=== PATIENT | female | born 1985 | race Caucasian/White ===

== ENCOUNTER 2016-06-01 15:14 | Emergency (ER) | payer OTHER ==
[~2016-06-01] VITALS: Ht 157.5 cm; Wt 73.5 kg
[~2016-06-01 15:14] MED LIST: ACET500C5 PO; PREN-46 PO; PREN1TAB49
[2016-06-01 15:20] VITALS: Ht 157.5 cm; Wt 73.5 kg
--- NOTE | 2016-06-01 16:23 | ERD ---
ER Documentation Chief Complaint Date/Time DATE: 06/01/16 TIME: 16:21 Chief Complaint 8 WEEKS WITH VOMITING HPI 30-year-old female who is approximately weeks , A0 comes in with hyperemesis gravidarum from her [employer] office today. Patient states that she usually has nonbloody nonbilious emesis after eating food. This is been ongoing for approximately 2 weeks now. She denies any fevers, diarrhea, hematemesis, abdominal pain. She denies pelvic pain or vaginal bleeding. ROS All systems reviewed and are negative except as per history of present illness. Medications Home Meds Active Scripts Metoclopramide* (Reglan*) 10 Mg Tablet, 10 MG PO Q6 Y for NAUSEA AND/OR VOMITING , #10 TAB Prov:LUZ MARIA GONZALEZ PA-C 06/01/16 Cephalexin* (Keflex*) 500 Mg Capsule, 500 MG PO QID for 7 Days, CAP Prov:LUZ MARIA GONZALEZ PA-C 06/01/16 Acetaminophen* (Tylophen*) 500 Mg Capsule, 1 CAP PO Q6H Y for PAIN AND OR ELEVATED TEMP, #20 CAP Prov:ETTA HOU MD 10/17/15 Reported Medications Vit #108/Iron/Fa ( ONE TABLET) 1 Each Tablet, 1 EACH PO DAILY, #1 03/18/13 Vits W-Ca,Fe,Fa(<1MG) () 1 Tab Tablet 10/15/09 Allergies Allergies: Coded Allergies: Ibuprofen (Verified Allergy, Mild, RASH, 10/22/09) PMhx/Soc History of Surgery: No Anesthesia Reaction: No Hx Neurological Disorder: No Hx Respiratory Disorders: No Hx Cardiac Disorders: No Hx Psychiatric Problems: No Hx Miscellaneous Medical Probl: No Hx Alcohol Use: No Hx Substance Use: No Hx Tobacco Use: No Physical Exam Vitals Vital Signs Date Time Temp Pulse Resp B/P Pulse Ox O2 Delivery O2 Flow Rate FiO2 06/01/16 15:20 97.1 79 20 135/88 99 Physical Exam General: Well-developed, well-nourished. The patient appears in no acute distress. HEENT: Head is normocephalic, atraumatic. No scleral icterus. Moist mucous membranes Neck: Supple. Nontender. Lungs: Clear to auscultation. Normal air movement. Heart: Regular rate and rhythm. S1 and S2 are normal. No murmurs, gallops, or rubs. Abdomen: Soft, nontender, nondistended. Bowel sounds are normoactive. Extremities: No clubbing or cyanosis. Normal pulses. Moving extremities x 4. No weakness. Neurologic: Alert and oriented 3. No focal deficits. Skin: Normal turgor. No rash or lesions. Result Diagram: 06/01/16 1655 06/01/16 1655 Results 24 hrs Laboratory Tests Test 06/01/16 16:45 06/01/16 16:55 Urine Color LT. YELLOW Urine Clarity CLEAR Urine pH 7.0 Urine Specific [place] 1.010 Urine Ketones NEGATIVE Urine Nitrite NEGATIVE Urine Bilirubin NEGATIVE Urine Urobilinogen 0.2 E.U./dL Urine Leukocyte Esterase 2+ Urine Microscopic RBC 0-2/HPF Urine Microscopic WBC 10-25/HPF Urine Squamous Epithelial Cells MODERATE Urine Bacteria MODERATE Urine Hemoglobin NEGATIVE Urine Glucose NEGATIVE% Urine Total Protein NEGATIVE White Blood Count 10.310^3/ul Red Blood Count 4.5210^6/ul Hemoglobin 12.7g/dl Hematocrit 37.4% Mean Corpuscular Volume 82.7fl Mean Corpuscular Hemoglobin 28.1pg Mean Corpuscular Hemoglobin Concent 34.0g/dl Red Cell Distribution Width 13.6% Platelet Count 89975^3/UL Mean Platelet Volume 10.6fl Neutrophils % 50.2% Lymphocytes % 39.1% Monocytes % 7.4% Eosinophils % 2.7% Basophils % 0.4% Nucleated Red Blood Cells % 0.0/100WBC Neutrophils # 5.210^3/ul Lymphocytes # 4.010^3/ul Monocytes # 0.810^3/ul Eosinophils # 0.310^3/ul Basophils # 0.010^3/ul Nucleated Red Blood Cells # 0.010^3/ul Sodium Level 140mmol/L Potassium Level 3.5mmol/L Chloride Level 102mmol/L Carbon Dioxide Level 23mmol/L Anion Gap 19 Blood Urea Nitrogen 7mg/dl Creatinine 0.50mg/dl Glucose Level 76mg/dl Calcium Level 9.3mg/dl Total Bilirubin 0.3mg/dl Direct Bilirubin 0.00mg/dl Indirect Bilirubin 0.3mg/dl Aspartate Amino Transf (AST/SGOT) 16IU/L Alanine Aminotransferase (ALT/SGPT) 22IU/L Alkaline Phosphatase 62IU/L Total Protein 7.6g/dl Albumin 4.3g/dl Globulin 3.30g/dl Albumin/Globulin Ratio 1.30 Lipase 68U/L Beta HCG, Quantitative 446918.0mIU/ml Current Medications Medications (Trade) Dose Ordered Sig/Elvie Route PRN Reason Start Time Stop Time Status Last Admin Dose Admin Sodium Chloride (NS) 1,000 ml @ 1,000 mls/hr Q1H ONCE IV 06/01/16 16:30 06/01/16 17:29 DC 06/01/16 17:03 Metoclopramide HCl (Reglan) 10 mg ONCE ONCE IV 06/01/16 16:30 06/01/16 16:31 DC 06/01/16 17:03 Diphenhydramine HCl 25 mg 25 mg ONCE ONCE IV 06/01/16 16:30 06/01/16 16:31 DC 06/01/16 17:03 Ceftriaxone Sodium (Rocephin) 50 ml @ 100 mls/hr ONCE ONCE IVPB 06/01/16 17:30 06/01/16 17:59 DC Procedures/MDM ED course: Patient had blood work, urine obtained, she was given a fluid bolus of normal saline 1 L, Benadryl 25 mg, Reglan 10 mg IV was administered. She was given Rocephin 1 g IV in the emergency department. She was reassessed and was found to be feeling much better. She did not experience any further episodes of emesis. MDM: 30-year-old female first trimester , comes in with hyperemesis gravidarum, urinary tract infection. She is hemodynamically stable, and there were no electrolyte abnormalities and her chemistry. And on ultrasound shows a single live intrauterine at 9 weeks. She was given fluids in the emergency department, as well as Reglan which controlled her symptoms. At this time given that she is not having any active vomiting, does not show any signs of dehydration or pyelonephritis, patient is appropriate to be discharged home for outpatient management. She is to follow-up with her OB in the next few days. Departure Diagnosis: Primary Impression: First trimester Additional Impressions: Hyperemesis gravidarum UTI (urinary tract infection) Condition: LUZ MARIA Colindres PA-C Jun 01, 2016 16:23
[2016-06-01] MEDS ORDERED: METOCLOPRAMIDE 10 MG INJ IV ONE (16:30)
[2016-06-01] MEDS ORDERED: DIPHENHYDRAMINE 50 MG INJ IV ONE (16:30)
[2016-06-01] MEDS ORDERED: SOD CHLORIDE 0.9% 1,000 ML IV ONE (16:30)
--- NOTE | 2016-06-01 17:01 | RADRPT ---
PROCEDURE: US Pelvis. CLINICAL INDICATION: Hyper emesis. TECHNIQUE: Multiple sonographic images of the pelvis were obtained utilizing a transabdominal and endovaginal technique. The images were reviewed on a PACS workstation. COMPARISON: FINDINGS: Uterus is remarkable for an single living intrauterine gestation. pole is seen with active ca rdiac activity at 171 beats per minute. The mean gestational sac size is 3.47 cm consistent with a w [place] 5-day gestation. The mean crown-rump length is 3.02 cm consist with a 1-jogq-5-day gestation.. There are no abnormal fluid collections. There are no adnexal masses. Both ovaries appear normal with Doppler flow visualized. The right ovary measures 2.2 x 1.8 x 1.7 cm. The left ovary measures 3.5 x 1.7 x 2.9 cm. IMPRESSION: 1. Single living intrauterine gestation with a mean gestational age by ultrasound of 9 weeks 2 days plus or minus 5 days. Estimated date of delivery is 01/02/2017. RPTAT: [facility]ACC Physician Daniel Date Time Electronically viewed and signed by Physician Daniel on 06/01/2016 17:01 /
[2016-06-01 17:06] LABS: ADD UMIC YES; URINE BILIRUBIN (Dip) NEGATIVE (NEGATIVE); URINE BLOOD (Dip) NEGATIVE (NEGATIVE); URINE COLOR LT. YELLOW (YELLOW); URINE GLUCOSE (Dip) NEGATIVE (NEGATIVE); URINE KETONES (Dip) NEGATIVE (NEGATIVE); URINE LEUKOCYTE ESTERASE (Dip) 2+ (NEGATIVE); URINE NITRITE (Dip) NEGATIVE (NEGATIVE); URINE TOTAL PROTEIN (Dip) NEGATIVE (NEGATIVE); URINE UROBILINOGEN (Dip) 0.2 E.U./dL (0.1-1.0)
[2016-06-01 17:07] LABS: ADD SCAN DIFF NO
[2016-06-01 17:09] LABS: BASOPHILS % 0.4 % (0.0-2.0); EOSINOPHILS # 0.3 10^3/ul (0.0-0.5); EOSINOPHILS % 2.7 % (0.0-7.0); HEMATOCRIT 37.4 % (37.0-47.0); HEMOGLOBIN 12.7 g/dl (12.0-16.0); LYMPHOCYTES % 39.1 % (15.0-51.0); MEAN CORPUSCULAR HEMOGLOBIN 28.1 pg (29.0-33.0); MEAN CORPUSCULAR VOLUME 82.7 fl (82.0-101.0); MEAN PLATELET VOLUME 10.6 fl (7.4-10.4); MONOCYTE # 0.8 10^3/ul (0.3-0.9); MONOCYTES % 7.4 % (0.0-11.0); NEUTROPHIL # 5.2 10^3/ul (1.6-7.5); NEUTROPHILS % 50.2 % (39.0-77.0); PLATELET COUNT 282 10^3/UL (140-415); RED BLOOD COUNT 4.52 10^6/ul (4.20-5.40); RED CELL DISTRIBUTION WIDTH 13.6 % (11.5-14.5); WHITE BLOOD COUNT 10.3 10^3/ul (4.8-10.8)
[2016-06-01 17:14] LABS: BACTERIA,URINE MODERATE; SQUAMOUS EPITHELIAL CELL,UR MODERATE; URINE RBCS 0-2 /HPF (0)
[2016-06-01 17:20] LABS: ALBUMIN 4.3 g/dl (3.3-4.9)
[2016-06-01 17:21] LABS: POTASSIUM 3.5 mmol/L (3.5-5.1)
[2016-06-01 17:23] LABS: ALBUMIN/GLOBULIN RATIO 1.3; BILIRUBIN,INDIRECT 0.3 mg/dl (0-1.1); BILIRUBIN,TOTAL 0.3 mg/dl (0.2-1.3); CREATININE 0.5 mg/dl (0.44-1.00); TOTAL PROTEIN 7.6 g/dl (6.1-8.1)
[2016-06-01 17:24] LABS: CALCIUM 9.3 mg/dl (8.4-10.2)
[2016-06-01] MEDS ORDERED: CEFTRIAXONE 1 GM/50 ML (PMX) 50 ML IVPB ONE (17:30)
[2016-06-01] MEDS ORDERED: METO10TA92 PO (18:09)
[2016-06-01] MEDS ORDERED: CEPH-443 PO (18:09)
== END 2016-06-01 19:11 | disposition home or self-care (01) ==
LOC: FTE 15:14
DX: O21.0 Mild hyperemesis gravidarum (principal); O23.41 Unspecified infection of urinary tract in pregnancy, first trimester; Z3A.09 9 weeks gestation of pregnancy
CPT/HCPCS: 36415; 76801; 80053; 81001; 81003; 83690; 84702; 85025; 96374; 96375; J0696; J1200; J2765; J7030; Z7502

== ENCOUNTER 2016-07-28 13:01 | Emergency (ER) | payer OTHER ==
[~2016-07-28] VITALS: Ht 157.5 cm; Wt 75.0 kg
[~2016-07-28 13:01] MED LIST changes: +CEPH-443 PO; +METO10TA92 PO
[2016-07-28 13:08] VITALS: Ht 157.5 cm; Wt 75.0 kg
[2016-07-28] MEDS ORDERED: HYDROCODONE/APAP (5/325) TAB PO ONE (14:00)
--- NOTE | 2016-07-28 14:12 | ERD ---
ER Documentation Chief Complaint Date/Time DATE: 07/28/16 TIME: 14:09 Chief Complaint lower back pain s/p fall in shower today , 18 weeks preg , denies abd pain HPI 30 yo female who is 18 weeks who is A0, comes in with low back pain s/p slip and fall in the bathroom. Patient reports moderate to severe pain , worse with movement. patient states that this is happened and she has diffuse lower back pain. She denies saddle anesthesia loss of bowel bladder function. She denies vaginal bleeding or vaginal leakage. ROS All systems reviewed and are negative except as per history of present illness. Medications Home Meds Active Scripts Cephalexin* (Keflex*) 500 Mg Capsule, 500 MG PO TID for 7 Days, CAP Prov:LUZ MARIA GONZALEZ PA-C 07/28/16 Metoclopramide* (Reglan*) 10 Mg Tablet, 10 MG PO Q6 Y for NAUSEA AND/OR VOMITING , #10 TAB Prov:LUZ MARIA GONZALEZ PA-C 06/01/16 Cephalexin* (Keflex*) 500 Mg Capsule, 500 MG PO QID for 7 Days, CAP Prov:LUZ MARIA GONZALEZ PA-C 06/01/16 Acetaminophen* (Tylophen*) 500 Mg Capsule, 1 CAP PO Q6H Y for PAIN AND OR ELEVATED TEMP, #20 CAP Prov:ETTA HOU MD 10/17/15 Reported Medications Vit #108/Iron/Fa ( ONE TABLET) 1 Each Tablet, 1 EACH PO DAILY, #1 03/18/13 Vits W-Ca,Fe,Fa(<1MG) () 1 Tab Tablet 10/15/09 Allergies Allergies: Coded Allergies: ibuprofen (Verified Allergy, Mild, RASH, 07/28/16) PMhx/Soc Medical and Surgical Hx: pt denies Medical Hx, pt denies Surgical Hx History of Surgery: No Anesthesia Reaction: No Hx Neurological Disorder: No Hx Respiratory Disorders: No Hx Cardiac Disorders: No Hx Psychiatric Problems: No Hx Miscellaneous Medical Probl: No Hx Alcohol Use: No Hx Substance Use: No Hx Tobacco Use: No Smoking Status: Never smoker Physical Exam Vitals Vital Signs Date Time Temp Pulse Resp B/P Pulse Ox O2 Delivery O2 Flow Rate FiO2 07/28/16 13:08 98.2 92 20 137/63 98 Physical Exam General: Well-developed, well-nourished. The patient appears in no acute distress. HEENT: Head is normocephalic, atraumatic. No scleral icterus. Lungs: Clear to auscultation. Normal air movement. Heart: Regular rate and rhythm. S1 and S2 are normal. No murmurs, gallops, or rubs. Abdomen: Soft, nontender, nondistended. Bowel sounds are normoactive. diffuse lumbar pain, no midline pain, no crepitus or bony deformities. Strength to lower extremities 5/5 bilaterally Extremities: No clubbing or cyanosis. Normal pulses. Moving extremities x 4. No weakness. Neurologic: Alert and oriented 3. No focal deficits. Skin: Normal turgor. No rash or lesions. Results 24 hrs Laboratory Tests Test 07/28/16 14:00 Urine Color LT. YELLOW Urine Clarity CLEAR Urine pH 7.0 Urine Specific [place] 1.010 Urine Ketones TRACE Urine Nitrite NEGATIVE Urine Bilirubin NEGATIVE Urine Urobilinogen 0.2 E.U./dL Urine Leukocyte Esterase TRACE Urine Microscopic RBC 0-2/HPF Urine Microscopic WBC 2-5/HPF Urine Hemoglobin NEGATIVE Urine Glucose NEGATIVE% Urine Total Protein NEGATIVE Current Medications Medications (Trade) Dose Ordered Sig/Elvie Route PRN Reason Start Time Stop Time Status Last Admin Dose Admin Acetaminophen/ Hydrocodone Bitart ([place] (5/325)) 1 tab ONCE ONCE PO 07/28/16 14:00 07/28/16 14:01 DC 07/28/16 13:55 PROCEDURE: Obstetrical ultrasound CLINICAL INDICATION: Fall, back pain TECHNIQUE: Multiple sonographic images of the pelvis were obtained. The images were reviewed on a PACS workstation. COMPARISON: Obstetrical ultrasound from 06/01/2016 FINDINGS: The cervix is not well visualized. There is a single viable intrauterine gestation. Cardiac activity is present with 171 beats per minute. There is a breech presentation. The placenta is posterior. There is no evidence for an abruption or placenta previa. There is a normal amount of amniotic fluid with a maximum vertical pocket of 4.6 cm. Measurements were made in order to determine age. The results are as follows (cm): BPD = 4.00 HC = 14.79 AC = 13.75 FL = 2.64 Estimated gestational age by ultrasound of approximately 18 weeks, 1 day. The estimated date of delivery by ultrasound is 12/28/2016. Estimated gestational age by LMP of approximately 18 weeks, 0 days. The estimated date of delivery by LMP is 12/29/2016. EFW = 245 grams (78th percentile) Bilateral ovaries are not visualized. There are no abnormal adnexal masses. IMPRESSION: Single viable intrauterine gestation of approximately 18 weeks, 1 day . The estimated date of delivery is and 12/28/2016 . Dating by ultrasound is within 1 day of dating by LMP. Posterior placenta without evidence of an abruption or placenta previa. Breech presentation. RPTAT: EE Physician Naty Date Time Electronically viewed and signed by Physician Naty on 07/28/2016 14:25 Procedures/MDM ED COURSE: patient was given [place] 5/325mg PO. Reassessment of the patient's pain was that she feels much better, I reevaluated her back pain, there is no midline tenderness. She is distally neurovascularly intact. Medical decision makin-year-old female who is 18 weeks comes emergency room status post fall with low back pain. Patient initially complained of diffuse pain, and was medicated with [place] and reassessment of her pain she is diffuse paraspinal tenderness without any midline pain. This is a young patient, it is doubtful that the patient suffered a fracture, and no signs of cauda equina. I discussed this case my supervising physician given that she is , x-rays were offered however she was made aware that there is a risk of radiation to the fetus, she declined x-rays at this time. An obstetrical ultrasound shows a single live intrauterine , placenta does not show any previa, abruption. Patient likely presents with a lumbar strain. She is distally neurovascularly intact, without any signs of cord injury. Urine does show 2-5 white blood cells, given that she is she will be given Keflex at home. The case was reviewed and discussed with Dr. Zaldivar who agrees with the plan of care including labs, treatment, and advanced imaging as appropriate. Departure Diagnosis: Primary Impression: Fall Additional Impressions: Second trimester UTI (urinary tract infection) Condition: LUZ MARIA Colindres PA-C July 28, 2016 14:12
--- NOTE | 2016-07-28 14:26 | RADRPT ---
PROCEDURE: Obstetrical ultrasound CLINICAL INDICATION: Fall, back pain TECHNIQUE: Multiple sonographic images of the pelvis were obtained. The images were reviewed on a PACS workstation. COMPARISON: Obstetrical ultrasound from 06/01/2016 FINDINGS: The cervix is not well visualized. There is a single viable intrauterine gestation. Cardiac activity is present with 171 beats per minute. There is a breech presentation. The placenta is posterior. There is no evidence for an abruption or placenta previa. There is a normal amount of amniotic fluid with a maximum vertical pocket of 4.6 cm. Measurements were made in order to determine age. The results are as follows (cm): BPD =4.00 HC =14.79 AC =13.75 FL =2.64 Estimated gestational age by ultrasound of approximately 18 weeks, 1 day. The estimated date of delivery by ultrasound is 12/28/2016. Estimated gestational age by LMP of approximately 18 weeks, 0 days. The estimated date of delivery by LMP is 12/29/2016. EFW = 245 grams (78th percentile) Bilateral ovaries are not visualized. There are no abnormal adnexal masses. IMPRESSION: Single viable intrauterine gestation of approximately 18 weeks, 1 day . The estimated date of delivery is and 12/28/2016 . Dating by ultrasound is within 1 day of dating by LMP. Posterior placenta without evidence of an abruption or placenta previa. Breech presentation. RPTAT: EE Physician Naty Date Time Electronically viewed and signed by Physician Naty on 07/28/2016 14:25 /
[2016-07-28 14:30] LABS: ADD UMIC YES; URINE BILIRUBIN (Dip) NEGATIVE (NEGATIVE); URINE BLOOD (Dip) NEGATIVE (NEGATIVE); URINE COLOR LT. YELLOW (YELLOW); URINE GLUCOSE (Dip) NEGATIVE (NEGATIVE); URINE KETONES (Dip) TRACE (NEGATIVE); URINE LEUKOCYTE ESTERASE (Dip) TRACE (NEGATIVE); URINE NITRITE (Dip) NEGATIVE (NEGATIVE); URINE TOTAL PROTEIN (Dip) NEGATIVE (NEGATIVE); URINE UROBILINOGEN (Dip) 0.2 E.U./dL (0.1-1.0)
[2016-07-28 14:44] LABS: URINE RBCS 0-2 /HPF (0)
[2016-07-28] MEDS ORDERED: CEPH-443 PO (15:05)
== END 2016-07-28 15:30 | disposition home or self-care (01) ==
LOC: FTE 13:01
DX: O9A.212 Injury, poisoning and certain other consequences of external causes complicating pregnancy, second trimester (principal); S39.92XA Unspecified injury of lower back, initial encounter; O23.42 Unspecified infection of urinary tract in pregnancy, second trimester; W18.2XXA Fall in (into) shower or empty bathtub, initial encounter; Y92.002 Bathroom of unspecified non-institutional (private) residence as the place of occurrence of the external cause; Z3A.18 18 weeks gestation of pregnancy
CPT/HCPCS: 76805; 81001; Z7502; Z7610

== ENCOUNTER 2016-10-04 01:05 | Outpatient (CLI) | payer OTHER ==
[~2016-10-04] VITALS: Ht 157.5 cm; Wt 80.9 kg
[2016-10-04 01:14] VITALS: BP 118/67; PULSE 75; RESP 17; Ht 157.5 cm; Wt 80.9 kg
[2016-10-04 02:30] LABS: BASOPHILS % 0.4 % (0.0-2.0); EOSINOPHILS # 0.6 10^3/ul (0.0-0.5); EOSINOPHILS % 5.4 % (0.0-7.0); HEMATOCRIT 31.6 % (37.0-47.0); HEMOGLOBIN 10.5 g/dl (12.0-16.0); LYMPHOCYTES % 28.5 % (15.0-51.0); MEAN CORPUSCULAR HEMOGLOBIN 28.2 pg (29.0-33.0); MEAN CORPUSCULAR HGB CONC 33.2 g/dl (32.0-37.0); MEAN CORPUSCULAR VOLUME 84.7 fl (82.0-101.0); MEAN PLATELET VOLUME 10.6 fl (7.4-10.4); MONOCYTE # 0.9 10^3/ul (0.3-0.9); MONOCYTES % 8.2 % (0.0-11.0); PLATELET COUNT 226 10^3/UL (140-415); RED BLOOD COUNT 3.73 10^6/ul (4.20-5.40); RED CELL DISTRIBUTION WIDTH 12.8 % (11.5-14.5); WHITE BLOOD COUNT 10.6 10^3/ul (4.8-10.8)
[2016-10-04 03:05] LABS: ADD UMIC YES; UR ASCORBIC ACID NEGATIVE (NEGATIVE); UR BACTERIA FEW /HPF (NONE SEEN); UR BILIRUBIN (Dip) NEGATIVE (NEGATIVE); UR BLOOD (Dip) NEGATIVE (NEGATIVE); UR CLARITY CLEAR (CLEAR); UR COLOR STRAW (YELLOW); UR GLUCOSE (Dip) NEGATIVE (NEGATIVE); UR KETONES (Dip) NEGATIVE (NEGATIVE); UR LEUKOCYTE ESTERASE (Dip) 1+ Leu/ul (NEGATIVE); UR NITRITE (Dip) NEGATIVE (NEGATIVE); UR RBC 1 /HPF (0-5); UR SQUAMOUS EPITHELIAL CELL FEW /HPF (FEW); UR TOTAL PROTEIN (Dip) NEGATIVE (NEGATIVE); UR UROBILINOGEN (Dip) NEGATIVE (NEGATIVE)
--- NOTE | 2016-10-04 03:29 | RADRPT ---
PROCEDURE: US OB limited. CLINICAL INDICATION: Contractions. Evaluate cervical length and amniotic fluid volume. TECHNIQUE: Multiple sonographic images of the pelvis were obtained. The images were reviewed on a PACS workstation. Transvaginal scanning was also performed to accurately assess cervical length. COMPARISON: 06/01/2016 FINDINGS: The cervix is closed with a length of 5.73 cm. Nabothian cyst is seen. There is a single viable intrauterine gestation. Cardiac activity is present with 157 beats per min [place]. There is a breech presentation. The placenta is posterior and grade 1. There is no evidence for an abruption or placenta previa. There is a normal amount of amniotic fluid with an LUCY = 16.6. IMPRESSION: Single live intrauterine gestation in breech presentation. Closed cervix with length of 5.73 cm. B reech presentation. Placenta posterior and grade 1. Normal amniotic fluid volume. RPTAT: [facility] Physician Remy Date Time Electronically viewed and signed by Physician Remy on 10/04/2016 03:29 LE/
--- NOTE | 2016-10-04 03:42 | PN ---
Triage Information Date/Time Reason for visit: Uterine contractions Weeks of Gestation 27+ /Para 3/2 Diabetes: none Hypertention: none Objective Vital Signs Date Time Temp Pulse Resp B/P Pulse Ox O2 Delivery O2 Flow Rate FiO2 10/04/16 01:14 98.0 75 17 118/67 Room Air Heart Rate: 140's Contractions: None Results/Medications Result Diagram: 10/04/16 0147 Results 24 hrs Laboratory Tests Test 10/04/16 01:47 White Blood Count 10.6 Red Blood Count 3.73 L Hemoglobin 10.5 L Hematocrit 31.6 L Mean Corpuscular Volume 84.7 Mean Corpuscular Hemoglobin 28.2 L Mean Corpuscular Hemoglobin Concent 33.2 Red Cell Distribution Width 12.8 Platelet Count 226 Mean Platelet Volume 10.6 H Neutrophils % 57.0 Lymphocytes % 28.5 Monocytes % 8.2 Eosinophils % 5.4 Basophils % 0.4 Nucleated Red Blood Cells % 0.0 Neutrophils # 6.0 Lymphocytes # 3.0 H Monocytes # 0.9 Eosinophils # 0.6 H Basophils # 0.0 Nucleated Red Blood Cells # 0.0 Urine Color [place]AW Urine Clarity CLEAR Urine pH 7.0 Urine Specific [place] 1.010 Urine Ketones NEGATIVE Urine Nitrite NEGATIVE Urine Bilirubin NEGATIVE Urine Urobilinogen NEGATIVE Urine Leukocyte Esterase 1+ H Urine Microscopic RBC 1 Urine Microscopic WBC 1 Urine Squamous Epithelial Cells FEW Urine Bacteria FEW A Urine Hemoglobin NEGATIVE Urine Glucose NEGATIVE Urine Total Protein NEGATIVE Assessment/Plan CXL WNL No urinary symptoms No CTXs NST reassuring -->Patient is discharged with precautions VALERIY WILLIS M.D. Oct 04, 2016 03:42
--- NOTE | 2016-10-04 03:51 | TRIAGE ---
OB Triage Datetime Report Generated by CPN: 10/04/2016 03:50 Datetime: 10/04/2016 03:37 Contraction Comments: External TOCO removed Datetime: 10/04/2016 03:30 Labor Evaluation Frequency: none noted at this time Monitor Mode: External Datetime: 10/04/2016 03:25 Stage of : OB Triage Pain Assessment Pain Scale: 4 Pain Presence: Intermittent Pain Type: Contraction Pain Location: Abdomen; Back Pain Relief Measures: Comfort Measures Datetime: 10/04/2016 02:30 Labor Evaluation Frequency: none noted at this time Monitor Mode: External Datetime: 10/04/2016 02:10 Stage of : OB Triage Quality: no contractions palpated Pain Assessment Pain Scale: 2 Pain Presence: Intermittent Pain Type: Contraction Pain Location: Abdomen; Back Pain Relief Measures: Comfort Measures Pain Assessment Comments: patient states the pain is "better" Datetime: 10/04/2016 01:44 Vaginal Exam Dilatation (cms): 0.0 Effacement (%): 0 Station: -4 Exam By: Dionne Henriquez RN Membrane Status: Intact Vaginal Bleeding: None Cervix, Consistency: Firm Cervix, Position: Midposition Datetime: 10/04/2016 01:42 Monitor Mode: External Quality: no contractions palpated Comments: Removed external monitor Datetime: 10/04/2016 01:30 Labor Evaluation Frequency: none noted at this time Monitor Mode: External Heart Rate FHR Baseline Rate: 135 Monitor Mode: External US Variability: Moderate 6-25 bpm Comments: appropriate for gestational age Datetime: 10/04/2016 01:21 Time of Arrival: 10/04/2016 01:00 EGA: 27.5 Arrived By: Wheelchair Arrived From: Home Chief Complaint: Contractions [id number] per patient Movement: Present Contractions: Irregular Contractions: Q5 minutes per patient Rupture of Membranes: Denies Vaginal Bleeding: None Vaginal Discharge: Denies Recent Sexual Intercouse: Yes Abdominal Trauma: Not Applicable Patient Complaints: Contractions Time Provider Notified: 10/04/2016 01:30 Provider Notified: Dr. Pardo Initial Plan: EFMx2 Datetime: 10/04/2016 01:14 Stage of : OB Triage Assessment Type: Triage Maternal Assessment Level of Consciousness: Fully Conscious DTR's/Clonus: DTRs 2+; No Clonus Headache: Denies Blurred Vision: No Respiratory Effort: Unlabored; Regular Rhythm; Equal Expansion Breath Sounds, Left: Clear and Equal Breath Sounds, Right: Clear and Equal Nausea/Vomiting: Denies RUQ Epigastric Pain: Denies Lower Extremities Edema: None Degree: None Upper Extremities Edema: None Degree: None Facial Edema: None Temperature Route: Oral Fall Risk Assessment History of Falling: (0) No Secondary Diagnosis: (0) No Ambulatory Aid: (0) Bedrest/Nurse Assist IV Therapy: (0) No Gait: (0) Normal/Bedrest/Immobile Mental Status: (0) Oriented to Own Ability Fall Score: 0 Fall Risk Score Definition: No Risk: No action required Pain Assessment Pain Scale: 7 Pain Presence: Intermittent Pain Type: Contraction Pain Location: Abdomen; Back Pain Relief Measures: Comfort Measures Datetime: 10/04/2016 01:13 Monitor Mode: External (Annotations: applied) Quality: no contractions palpated at this time Resting Tone [place]: Relaxed Monitor Mode: External US (Annotations: applied)
== END 2016-10-04 03:45 | disposition home or self-care (01) ==
LOC: L-D 01:05 → OBT 01:05
PROVIDERS: ATTEND Obstetrics & Gynecology
DX: O47.02 False labor before 37 completed weeks of gestation, second trimester (principal); Z3A.27 27 weeks gestation of pregnancy
CPT/HCPCS: 36415; 76815; 76817; 81001; 85025; Z7500; G0463

== ENCOUNTER 2016-11-01 17:03 | Outpatient (CLI) | payer OTHER ==
[~2016-11-01] VITALS: Ht 157.5 cm; Wt 83.6 kg
[~2016-11-01 17:03] MED LIST changes: -ACET500C5 PO; -CEPH-443 PO; -METO10TA92 PO; -PREN1TAB49
[2016-11-01 17:15] VITALS: BP 125/86; PULSE 86; RESP 18; Ht 157.5 cm; Wt 83.6 kg
[2016-11-01 17:28] LABS: ADD UMIC YES; UR ASCORBIC ACID 40 mg/dL (NEGATIVE); UR BILIRUBIN (Dip) NEGATIVE (NEGATIVE); UR BLOOD (Dip) NEGATIVE (NEGATIVE); UR CLARITY SLIGHTLY CLOUDY (CLEAR); UR COLOR YELLOW (YELLOW); UR GLUCOSE (Dip) NEGATIVE (NEGATIVE); UR KETONES (Dip) NEGATIVE (NEGATIVE); UR LEUKOCYTE ESTERASE (Dip) 3+ Leu/ul (NEGATIVE); UR MUCUS FEW /HPF (NONE SEEN); UR NITRITE (Dip) NEGATIVE (NEGATIVE); UR RBC 1 /HPF (0-5); UR SPECIFIC GRAVITY (Dip) 1.016 (1.003-1.030); UR SQUAMOUS EPITHELIAL CELL FEW /HPF (FEW); UR TOTAL PROTEIN (Dip) NEGATIVE (NEGATIVE); UR UROBILINOGEN (Dip) NEGATIVE (NEGATIVE)
--- NOTE | 2016-11-01 17:38 | RADRPT ---
PROCEDURE: Limited obstetric ultrasound CLINICAL INDICATION: Pain , labor TECHNIQUE: Multiple transverse and longitudinal grayscale images of the pelvis were obtained heard sabdominally and transvaginally.. COMPARISON: 10/04/2016 FINDINGS: The cervix is closed with a length of 4.9 cm. There is a single viable intrauterine gestation. Cardiac activity is present with 137 beats per min [place]. There is a vertex presentation. The placenta is posterior. There is no evidence for an abruption or placenta previa. RPTAT: AA IMPRESSION: Cervix length measures 4.9 cm. .Cory Arango MD, Date Time Electronically viewed and signed by .Cory Arango MD, on 11/01/2016 17:37 .S/
--- NOTE | 2016-11-01 18:15 | TRIAGE ---
OB Triage Datetime Report Generated by CPN: 11/01/2016 18:14 Datetime: 11/01/2016 17:10 Time of Arrival: 11/01/2016 17:00 EGA: 31.5 Arrived By: Ambulatory Arrived From: Home Chief Complaint: Back pain Movement: Present Contractions: Denies/Absent Rupture of Membranes: Denies Vaginal Discharge: Denies Recent Sexual Intercouse: Denies Abdominal Trauma: Not Applicable Patient Complaints: Back Pain Time Provider Notified: 11/01/2016 17:13 Provider Notified: Shamsian Initial Plan: UA, Cervical Length Maternal Assessment Level of Consciousness: Fully Conscious DTR's/Clonus: DTRs 2+; No Clonus Headache: Denies Blurred Vision: No Respiratory Effort: Unlabored; Regular Rhythm; Equal Expansion Breath Sounds, Left: Clear and Equal Breath Sounds, Right: Clear and Equal Nausea/Vomiting: Denies RUQ Epigastric Pain: Denies Lower Extremities Edema: Bilateral Lower Extremities Degree: Trace Upper Extremities Edema: None Degree: None Facial Edema: None Fall Risk Assessment History of Falling: (0) No Secondary Diagnosis: (0) No Ambulatory Aid: (0) Bedrest/Nurse Assist IV Therapy: (0) No Gait: (0) Normal/Bedrest/Immobile Mental Status: (0) Oriented to Own Ability Fall Score: 0 Fall Risk Score Definition: No Risk: No action required Datetime: 11/01/2016 17:05 Stage of : OB Triage Datetime: 10/04/2016 01:21 EGA: 27.5 Datetime: 10/04/2016 01:14 Fall Score: 0 Fall Risk Score Definition: No Risk: No action required
--- NOTE | 2017-01-17 16:39 | QN ---
Documentation Comment 31 weeks ucc vss exam wnl us wnl a/p iup 31 weeks false labor dc byron FELIX SCHROEDER MD Jan 17, 2017 16:39
== END 2016-11-01 18:10 | disposition home or self-care (01) ==
LOC: L-D 17:03 → OBT 17:03
PROVIDERS: ATTEND Obstetrics & Gynecology
DX: O47.03 False labor before 37 completed weeks of gestation, third trimester (principal); Z3A.31 31 weeks gestation of pregnancy
CPT/HCPCS: 76817; 81001; 87086; Z7500; G0463

== ENCOUNTER 2016-12-28 00:16 | Inpatient (IN) | payer OTHER ==
[~2016-12-28] VITALS: Ht 157.5 cm; Wt 79.5 kg
[2016-12-28] MEDS ORDERED: LACTATED RINGER'S 1,000 ML IV PRN (01:07)
[2016-12-28] MEDS ORDERED: LIDOCAINE 1% (MPF) 30 ML INJ INJ PRN (01:30)
[2016-12-28] MEDS ORDERED: OXYTOCIN 30 UNITS/LR 500 ML IV PRN ×2 (01:30→12:30)
[2016-12-28] MEDS ORDERED: CARBOPROST 250 MCG INJ IM PRN ×2 (01:30→12:30)
[2016-12-28] MEDS ORDERED: IBUPROFEN 600 MG TAB PO PRN (01:30)
[2016-12-28] MEDS ORDERED: OXYTOCIN 30 UNITS/LR 500 ML IV SCH (01:30)
[2016-12-28] MEDS ORDERED: BUTORPHANOL 2 MG INJ IV PRN ×2 (01:30)
[2016-12-28] MEDS ORDERED: HYDROCODONE/APAP (5/325) TAB PO PRN (01:30)
[2016-12-28] MEDS ORDERED: METHYLERGONOVINE 0.2 MG INJ IM PRN ×2 (01:30→12:30)
[2016-12-28] MEDS ORDERED: AMPICILLIN 2 GM/NS (PMX) 100 ML IV ONE (01:30)
[2016-12-28] MEDS ORDERED: MISOPROSTOL 200 MCG TAB PR PRN ×2 (01:30→12:30)
[2016-12-28 01:31] VITALS: Ht 157.5 cm; Wt 79.5 kg
[2016-12-28 01:32] VITALS: BP 126/73; PULSE 69; RESP 18
[2016-12-28] MEDS: LACTATED RINGER'S 1,000 ML IV SCH ×4 (02:08→11:34)
--- NOTE | 2016-12-28 03:22 | TRIAGE ---
OB Triage Datetime Report Generated by CPN: 12/28/2016 03:21 Datetime: 12/28/2016 03:08 Vaginal Exam Dilatation (cms): 2.0 Effacement (%): 30 Station: -3 Exam By: JO RN Vaginal Bleeding: Normal Show Cervix, Consistency: Moderate Datetime: 12/28/2016 02:42 Monitor Mode: External US Datetime: 12/28/2016 02:25 Assessment Type: Admission Assessment Vaginal Bleeding: None Maternal Assessment Level of Consciousness: Fully Conscious DTR's/Clonus: DTRs 2+; No Clonus Headache: Denies Blurred Vision: No Respiratory Effort: Unlabored; Regular Rhythm; Equal Expansion Breath Sounds, Left: Clear and Equal Breath Sounds, Right: Clear and Equal Nausea/Vomiting: Denies RUQ Epigastric Pain: Denies Lower Extremities Edema: Bilateral Lower Extremities Degree: 1+ Upper Extremities Edema: None Degree: None Facial Edema: None Fall Risk Assessment History of Falling: (0) No Secondary Diagnosis: (0) No Ambulatory Aid: (0) Bedrest/Nurse Assist IV Therapy: (20) Yes Gait: (0) Normal/Bedrest/Immobile Mental Status: (0) Oriented to Own Ability Fall Score: 20 Fall Risk Score Definition: No Risk: No action required Labor Evaluation Frequency: OCCASIONAL Duration (sec)2399: 40-80 Quality: Mild Pattern: Normal: <= 5 Contractions in 10 Minutes Resting Tone [place]: Relaxed Contraction Comments: 3UC'S NOTED IN THE PAST HR Heart Rate FHR Baseline Rate: 135 Variability: Moderate 6-25 bpm Accelerations: 15X15 Decelerations: Variable Category: Category II Pain Assessment Pain Scale: 2 Pain Presence: None/Denies Pain Type: N/A Membrane Status: Ruptured Datetime: 12/28/2016 01:32 Time of Arrival: 12/28/2016 01:32 EGA: 39.6 Arrived By: Stretcher Arrived From: TRIAGE Datetime: 12/28/2016 01:26 Stage of : OB Triage Datetime: 12/28/2016 01:00 Labor Evaluation Frequency: 4 Monitor Mode: External Duration (sec)2399: -100 Duration (sec)2399: 70 Quality: Mild Pattern: Normal: <= 5 Contractions in 10 Minutes Resting Tone [place]: Relaxed Heart Rate FHR Baseline Rate: 135 Monitor Mode: External US FHR Baseline Changes: No Baseline Change Variability: Moderate 6-25 bpm Accelerations: 15X15 Decelerations: Early Category: Category I Datetime: 12/28/2016 00:45 Time of Arrival: 12/28/2016 00:17 EGA: 39.6 Arrived By: Wheelchair Arrived From: Home (Annotations: Data stored by CPN on behalf of user) Chief Complaint: SROM Movement: Present Contractions: Irregular Time Contractions Began: 12/27/2016 23:00 Rupture of Membranes: Ruptured Vaginal Bleeding: None Vaginal Discharge: Present Recent Sexual Intercouse: Denies Abdominal Trauma: Not Applicable Patient Complaints: None Time Provider Notified: 12/28/2016 00:46 Provider Notified: DR CAMPOS Initial Plan: CALL JONEL GARCIA Datetime: 12/28/2016 00:44 Stage of : OB Triage Maternal Assessment Level of Consciousness: Fully Conscious DTR's/Clonus: DTRs 2+; No Clonus Headache: Denies Blurred Vision: No Respiratory Effort: Unlabored; Regular Rhythm; Equal Expansion Breath Sounds, Left: Clear and Equal Breath Sounds, Right: Clear and Equal Nausea/Vomiting: Denies RUQ Epigastric Pain: Denies Lower Extremities Edema: None Degree: None Upper Extremities Edema: None Degree: None Facial Edema: None Temperature Route: Oral Fall Risk Assessment History of Falling: (0) No Secondary Diagnosis: (0) No Ambulatory Aid: (0) Bedrest/Nurse Assist IV Therapy: (0) No Gait: (0) Normal/Bedrest/Immobile Mental Status: (0) Oriented to Own Ability Fall Score: 0 Fall Risk Score Definition: No Risk: No action required Monitor Mode: External Monitor Mode: External US Pain Assessment Pain Scale: 5 Pain Presence: Intermittent Pain Type: Contraction Pain Location: Abdomen; Back Datetime: 12/28/2016 00:37 Stage of : OB Triage Vaginal Exam Dilatation (cms): 1.0 Effacement (%): 30 Station: -3 Exam By: Deidre REYNOLDS RN Membrane Status: Ruptured Membranes Ruptured Date/Time: 12/27/2016 23:00 Membranes Rupture Method: Spontaneous Amniotic Fluid Color: Particulate Meconium Amniotic Fluid Amount: Moderate Amniotic Fluid Odor: None Vaginal Bleeding: None Pool: Positive Nitrazine: Positive Cervix, Consistency: Firm Cervix, Position: Posterior Datetime: 11/01/2016 17:55 Labor Evaluation Frequency: x1 contraction noted in last hour Monitor Mode: External Duration (sec)2399: 60 Quality: Mild Pattern: Normal: <= 5 Contractions in 10 Minutes Resting Tone [place]: Relaxed Heart Rate FHR Baseline Rate: 140 Monitor Mode: External US FHR Baseline Changes: No Baseline Change Variability: Moderate 6-25 bpm Accelerations: 15X15 Decelerations: None Category: Category I Pain Assessment Pain Scale: 8 Pain Presence: Intermittent Pain Type: Ache Pain Location: Back Pain Goal: 2 Pain Relief Measures: Comfort Measures Datetime: 11/01/2016 17:10 EGA: 31.5 Fall Score: 0 Fall Risk Score Definition: No Risk: No action required Datetime: 10/04/2016 01:21 EGA: 27.5 Membranes Ruptured Date/Time: 12/27/2016 23:00 Membranes Rupture Method: Spontaneous Amniotic Fluid Color: Particulate Meconium Amniotic Fluid Amount: Moderate Amniotic Fluid Odor: None (Annotations: Data stored by N on behalf of user) Presentation 'A': Cephalic Datetime: 10/04/2016 01:14 Fall Score: 0 Fall Risk Score Definition: No Risk: No action required
--- NOTE | 2016-12-28 04:02 | RADRPT ---
PROCEDURE: Obstetrical ultrasound, limited. CLINICAL INDICATION: Pelvic pain. TECHNIQUE: Multiple sonographic images of the pelvis were obtained using transabdominal technique . Images were obtained with valdez scale and color Doppler. The images were reviewed on a PACS works tation. COMPARISON: 11/01/2016. FINDINGS: There is a single living intrauterine gestation with the fetus in a vertex presentation. hear t tones of 148 beats per minute are identified. The placenta is posterior in location, grade 2. IMPRESSION: Single viable intrauterine gestation. Vertex presentation. .Hira Bradford MD, MD Date Time Electronically viewed and signed by .Hira Bradford MD, MD on 12/28/2016 04:01 .T/
[2016-12-28] MEDS ORDERED: MINERAL OIL LIGHT 10 ML VIAL TOP ONE (05:00)
[2016-12-28] MEDS ORDERED: AMPICILLIN 1 GM/NS (PMX) 50 ML IV SCH (05:30)
[2016-12-28] MEDS ORDERED: FENTAnyl 2MCG/ML-ROPIV 0.2% 100 ML ONE (05:31)
[2016-12-28] MEDS: AMPICILLIN 1 GM/NS (PMX) 50 ML IV SCH ×3 (06:07→14:00)
[2016-12-28] MEDS ORDERED: EPHEDrine SULFATE 50 MG/5 ML SYG IV PRN (06:10)
[2016-12-28] MEDS ORDERED: FENTAnyl 2MCG/ML-ROPIV 0.2% 100 ML BAG EPI SCH (06:30)
[2016-12-28] MEDS ORDERED: NALOXONE (0.4 MG/ML) INJ IV PRN (06:30)
[2016-12-28] MEDS ORDERED: ONDANSETRON 4 MG INJ ONE (11:15)
[2016-12-28] MEDS ORDERED: ONDANSETRON 4 MG INJ IV PRN (11:20)
[2016-12-28] MEDS: OXYTOCIN 30 UNITS/LR 500 ML IV SCH ×2 (11:50→12:42)
--- NOTE | 2016-12-28 12:00 | HP ---
Date/Time of Note Date/Time of Note DATE: 12/28/16 TIME: 11:48 OB - History Hx of Present Free Text/Dictation 30 y.o at 39w6d presented [facility] after srom at 2300 on 12/27/16 in early labor with uterine contracions occasionally . fluid shows particulated meconium VE close/ thick /_4 Hx of chlamidia treated current neg GBS pos adnitted for poss augmentation . Estimated Due Date: Dec 29, 2016 : 3 Para: 2 Spontaneous : 0 Therapeutic : 0 Care: Good Care Ultrasounds: Normal mid trimester US, Other Obstetrical Complications: None Medical Complications: None Past Family/Social History * Past Medical, Surgical, Family and Obstetric Histories reviewed from chart. Blood Type: O+ Rubella: immune RPR/VDRL: Negative GBS Status: Positive HBsAG: Negative OB Admission Exam Vital Signs Vital Signs Vital Signs Date Time Temp Pulse Resp B/P Pulse Ox O2 Delivery O2 Flow Rate FiO2 12/28/16 01:32 98.0 69 18 126/73 Room Air Physical Exam HEENT: WNL Heart: Rhythm Normal Lungs: Clear, Equal Abdomen: WNL Extremities: Normal Reflexes: Normal Cervical Dilatation: None Effacement: 0% Station: Ballotable Membranes: Ruptured Amniotic Fluid: Other (particulated mec) Heart Rate: 130's Accelerations: Accelerations Present Decelerations: Variable Decelerations Varibility: Moderate Contractions on Admission: >10 Minutes Apart Intensity: Mild Last 72 hours Lab Results CBC & BMP 12/28/16 02:00 Liver Function Test 12/28/16 02:00 Alanine Aminotransferase (ALT/SGPT) 22 Albumin 3.8 Alkaline Phosphatase 264 H Aspartate Amino Transf (AST/SGOT) 15 Direct Bilirubin 0.00 Total Protein 6.7 OB Assessment/Plan Other Assessment: IUP 39w6d SROM in early labor Plan: Expectant Management, Other (poss augmentation) JASON CEDEÑO MD Dec 28, 2016 11:59
--- NOTE | 2016-12-28 12:02 | LDN ---
Date/Time of Note Date/Time of Note DATE: 12/28/16 TIME: 12:00 Delivery Summary normal vaginal delivery Weeks of Gestation 39w6d Placenta Delivered: Spontaneously Meconium: Particulate Episiotomy: No Perineal laceration: 0 Anesthesia type: Epidural Estimated blood loss: 100 Sponge & Needle done & correct: Yes All needle counts correct: Yes Any foreign bodies felt in the: No Problems: Infant Delivery Information Sex Infant Sex: male Apgars 1 Minute: 7 5 Minute: 8 10 Minute: 9 Suctioning Nose & mouth suctioned at sheryl: Yes Delee suction performed: Yes Umbilical Cord Umbilical cord with: 3 Vessels Cord presentations: nuchal cord Nuchal cord present X: 1 Cord Blood was obtained: Yes Mother & Baby Disposition Disposition Mom & Baby to Maternity; Good: Yes Mom transferred to: Other Baby to NICU: No () JASON CEDEÑO MD Dec 28, 2016 12:02
[2016-12-28] MEDS ORDERED: ZOLPIDEM 5 MG TAB PO PRN (12:30)
[2016-12-28] MEDS ORDERED: BENZOCAINE 20% 56 ML SPRAY TOP PRN (12:30)
[2016-12-28] MEDS ORDERED: WITCH HAZEL/GLYCERIN PAD PR PRN (12:30)
[2016-12-28] MEDS ORDERED: LANOLIN 7 GM TUBE TOP PRN (12:30)
[2016-12-28 13:40] VITALS: BP 139/73; PULSE 78; RESP 18
[2016-12-28 16:30] VITALS: BP 141/80; PULSE 66; RESP 19
[2016-12-28] MEDS: CEPHALEXIN 500 MG CAP PO SCH ×2 (17:22→23:59)
[2016-12-28 19:50] VITALS: BP 119/60; PULSE 75; RESP 18
[2016-12-28] MEDS: SENNA/DOCUSATE NA (8.6MG/50MG) TAB PO SCH (21:34)
[2016-12-29] VITALS: BP 112/62; PULSE 88; RESP 18
[2016-12-29] MEDS: ACETAMINOPHEN 325 MG TAB PO PRN ×5 (01:23→21:28)
[2016-12-29 03:00] VITALS: BP 116/62; PULSE 82; RESP 18
[2016-12-29] MEDS: CEPHALEXIN 500 MG CAP PO SCH ×3 (05:33→17:32)
[2016-12-29 08:20] VITALS: BP 105/50; PULSE 65; RESP 16
[2016-12-29] MEDS: SENNA/DOCUSATE NA (8.6MG/50MG) TAB PO SCH ×2 (08:29→21:17)
[2016-12-29] MEDS: PRENATAL VITAMIN PO SCH (08:29)
--- NOTE | 2016-12-29 14:55 | DS ---
Date/Time of Note Date/Time of Note Home following day DATE: 12/29/16 TIME: 14:54 Obstetrical Discharge Record Final Diagnosis Final Diagnosis: Term delivered Other Final Diagnosis Status post vaginal delivery Vaginal Delivery Obstetrical Delivery: Spontaneous Condition on Discharge Physical Assessment Last Vitals: See nurse's notes Voiding: Yes Bowel Movement: Yes Breast: Soft, non-tender, Filling Fundus: Firm Abdomen and Incision: 1 is soft bowel sounds present This is a umbilicus Episiotomy: Not applicable Perineum is clean Calf Tenderness: No Patient Condition: Good DEBBIE HART MD Dec 29, 2016 14:55
[2016-12-29] MEDS ORDERED: ACET325T40 PO (14:57)
--- NOTE | 2016-12-29 14:57 | PD.PPDC ---
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
--- NOTE | 2016-12-29 14:57 | PD.PPDC ---
HOUSEKEEPING AND LAUNDRY TEAM LEADER Discharge Instruction Provider Information Physician Information 31-year-old female had vaginal delivery Diagnosis Final Diagnosis: Status post vaginal delivery Condition Patient Condition: Good Diet Diet: Resume Regular Diet Activity/Restrictions Activity: Normal Activity May Shower Restrictions: Nothing in the Vagina Return to Work or School: Mar 01, 2017 Follow-up Follow-up with Physician: 4, Week/Weeks Return to clinic for OB Instructions: Breast Tenderness Depression Comment: Pelvic rest 6 weeks DEBBIE HART MD Dec 29, 2016 14:57
[2016-12-29 16:00] VITALS: BP 125/68; PULSE 70; RESP 16
[2016-12-29 20:45] VITALS: BP 120/56; PULSE 68; RESP 17
[2016-12-30] MEDS: CEPHALEXIN 500 MG CAP PO SCH ×2 (00:26→06:03)
[2016-12-30] MEDS: ACETAMINOPHEN 325 MG TAB PO PRN ×3 (01:45→08:49)
[2016-12-30 04:30] VITALS: BP 120/71; PULSE 65; RESP 17; RESP 18
[2016-12-30 08:45] VITALS: BP 132/74; PULSE 60; RESP 18
[2016-12-30] MEDS: SENNA/DOCUSATE NA (8.6MG/50MG) TAB PO SCH (08:49)
[2016-12-30] MEDS: PRENATAL VITAMIN PO SCH (08:49)
[2016-12-30] MEDS ORDERED: DIPHTH/TET/ACEL PERTUSS (ADULT) 0.5 ML VIAL IM* ONE (09:00)
== END 2016-12-30 13:40 | disposition home or self-care (01) | DRG 775 ==
LOC: OBT 00:16 → L-D 00:20 → OBT 01:00 → PP1 14:20
PROVIDERS: ADMIT Obstetrics & Gynecology; ATTEND Obstetrics & Gynecology
PROC: 10E0XZZ Delivery of Products of Conception, External Approach (ICD-10-PCS; principal; 2016-12-28)
DX: O77.0 Labor and delivery complicated by meconium in amniotic fluid (principal); O69.81X0 Labor and delivery complicated by cord around neck, without compression, not applicable or unspecified; Z3A.39 39 weeks gestation of pregnancy; Z37.0 Single live birth
CPT/HCPCS: 62319; 76815; 80053; 80307; 81001; 84560; 85025; 85384; 85610; 85730; 86592; 86762; 86900; 86901; 87340; 90715; 99464; G0463; J0290; J2405; J2590; J3010; J7120

== ENCOUNTER 2017-06-25 19:09 | Emergency (ER) | END 2017-06-25 21:43 | disposition home or self-care (01) ==